=== PATIENT | female | born 1980 | race Caucasian/White ===

== ENCOUNTER 2020-01-10 13:25 | Inpatient (IN) | payer MEDICAID ==
[~2020-01-10] VITALS: Ht 162.6 cm; Wt 153.8 kg
[2020-01-18 20:30] VITALS: BP 149/88
[2020-01-18] MEDS ORDERED: ACETAMINOPHEN 325 MG TABLET PO PRN (21:15)
[2020-01-18] MEDS ORDERED: HYPROMELLOSE 0.5% 15 ML OPHTHALMIC SOLUTION OU PRN (21:30)
[2020-01-18] MEDS ORDERED: POLYETHYLENE GLYCOL 3350 17 GM PACKET PO PRN (21:30)
[2020-01-18] MEDS ORDERED: DEXTROSE 50%-WATER 25 GM/50 ML SYRINGE IVP PRN (21:45)
[2020-01-18] MEDS ORDERED: CITALOPRAM HYDROBROMIDE 20 MG TABLET PO PRN (21:45)
[2020-01-18] MEDS ORDERED: INSULIN LISPRO 100 UNITS/ML SQ PRN (21:45)
[2020-01-18] MEDS: GABAPENTIN 100 MG CAPSULE PO SCH (22:27)
[2020-01-18] MEDS: HEPARIN SODIUM,PORCINE 10,000 UNITS/ML VIAL SQ SCH (22:27)
[2020-01-18] MEDS: OXYGEN THERAPY IH SCH (22:28)
[2020-01-18] MEDS ORDERED: INFLUENZA VIRUS VACCINE QVS 2019-20 (3YR+)/PF 60 MCG/0.5 ML SYRINGE IM ONE (22:30)
[2020-01-18 22:50] LABS: GLUCOMETER DEV NAME(LOC) 2WR.2; GLUCOSE,POINT OF CARE 103 MG/DL (70-110)
[2020-01-19 04:48] VITALS: BP 145/79
[2020-01-19 06:45] LABS: GLUCOMETER DEV NAME(LOC) 2WR.1C; GLUCOSE,POINT OF CARE 102 MG/DL (70-110)
[2020-01-19 07:28] LABS: BASOPHILS % (AUTO) 0.6 % (0.0-2.0); EOSINOPHILS % (AUTO) 3.6 % (1.0-6.0); HEMATOCRIT 31.3 % (36-46); HEMOGLOBIN 10.1 g/dL (12.0-16.0); LYMPHOCYTES # (AUTO) 1.1 K/uL (1.0-4.8); MEAN CORPUSCULAR HEMOGLOBIN 28.2 pg (26.0-34.0); MEAN CORPUSCULAR HGB CONC 32.3 G/dL (31.0-37.0); MEAN CORPUSCULAR VOLUME 87 fL (80-100); MONOCYTES # (AUTO) 0.5 K/uL (0.1-1.0); MONOCYTES % (AUTO) 13.6 % (2.0-9.0); NEUTROPHILS # (AUTO) 1.8 K/uL (1.8-7.7); NEUTROPHILS % (AUTO) 51.2 % (40.0-70.0); PLATELET COUNT (AUTO) 202 K/uL (150-450); RED BLOOD CELL COUNT(AUTO) 3.59 MIL/uL (4.00-5.20); RED CELL DISTRIBUTION WIDTH 15.6 % (11.5-14.5)
[2020-01-19 07:48] LABS: ALANINE AMINOTRANSFERASE 28 U/L (12-78); ALBUMIN 2.9 g/dL (3.4-5.0); ALKALINE PHOSPHATASE 76 U/L (46-116); ANION GAP 1 mmol/L (8-16); ASPARTATE AMINOTRANSFERASE 43 U/L (15-37); BILIRUBIN,TOTAL 0.6 mg/dL (0.1-1.0); CALCIUM, TOTAL 9.5 mg/dL (8.8-10.5); CARBON DIOXIDE 38 mmol/L (22-29); CHLORIDE 99 mmol/L (98-107); CREATININE 0.76 mg/dL (0.60-1.30); GLOMERULAR FILTR. RATE CALC > 60 mL/min (>60); GLUCOSE,RANDOM 100 mg/dL (70-110); SODIUM SERUM 138 mmol/L (136-145); TOTAL PROTEIN, SERUM 7.3 g/dL (6.4-8.2); UREA NITROGEN, BLOOD 7 mg/dL (7-18)
[2020-01-19 08:00] VITALS: BP 139/77
[2020-01-19] MEDS ORDERED: ARIPiprazole 10 MG TABLET PO SCH (09:00)
[2020-01-19] MEDS: CIPROFLOXACIN HCL 0.3% 2.5 ML OPHTHALMIC SOLUTION OU SCH ×4 (09:09→20:24)
[2020-01-19] MEDS: FLUTICASONE PROPIONATE 50 MCG/SPRAY 16 GM NASAL SPRAY NASAL SCH (09:10)
[2020-01-19] MEDS: KETOCONAZOLE 2% 15 GM CREAM TP SCH (09:10)
[2020-01-19] MEDS: SENNA 187 MG TABLET PO SCH (09:11)
[2020-01-19] MEDS: ASCORBIC ACID 500 MG TABLET PO SCH (09:11)
[2020-01-19] MEDS: MULTIVITAMINS WITH MINERALS, THERAPEUTIC TABLET PO SCH (09:11)
[2020-01-19] MEDS: DOCUSATE SODIUM 250 MG CAPSULE PO SCH (09:11)
[2020-01-19] MEDS: MetFORMIN HCL 500 MG TABLET PO SCH ×2 (09:11→17:51)
[2020-01-19] MEDS: GABAPENTIN 100 MG CAPSULE PO SCH ×3 (09:11→20:24)
[2020-01-19] MEDS: HEPARIN SODIUM,PORCINE 10,000 UNITS/ML VIAL SQ SCH ×2 (09:12→20:24)
[2020-01-19] MEDS: OXYGEN THERAPY IH SCH ×2 (09:38→20:22)
[2020-01-19] MEDS: INSULIN GLARGINE,HUM.REC.ANLOG 100 UNITS/ML SQ SCH (09:43)
[2020-01-19 14:21] LABS: GLUCOMETER DEV NAME(LOC) 2WR.2; GLUCOSE,POINT OF CARE 90 MG/DL (70-110)
[2020-01-19 15:20] VITALS: BP 125/73
[2020-01-19 18:14] LABS: GLUCOMETER DEV NAME(LOC) 2WR.2; GLUCOSE,POINT OF CARE 86 MG/DL (70-110)
[2020-01-19] MEDS: ARIPiprazole 10 MG TABLET PO SCH (20:23)
[2020-01-19 20:57] LABS: GLUCOMETER DEV NAME(LOC) 2WR.2; GLUCOSE,POINT OF CARE 115 MG/DL (70-110)
[2020-01-20 01:21] VITALS: BP 141/89
[2020-01-20] MEDS: OxyCODONE HCL 5 MG IR TABLET PO PRN (01:21)
[2020-01-20 07:13] LABS: GLUCOMETER DEV NAME(LOC) 2WR.2; GLUCOSE,POINT OF CARE 104 MG/DL (70-110)
[2020-01-20 07:45] VITALS: BP 92/51
[2020-01-20] MEDS: FLUTICASONE PROPIONATE 50 MCG/SPRAY 16 GM NASAL SPRAY NASAL SCH (09:20)
[2020-01-20] MEDS: HEPARIN SODIUM,PORCINE 10,000 UNITS/ML VIAL SQ SCH ×2 (09:21→20:40)
[2020-01-20] MEDS: MetFORMIN HCL 500 MG TABLET PO SCH ×2 (09:21→17:00)
[2020-01-20] MEDS: KETOCONAZOLE 2% 15 GM CREAM TP SCH (09:21)
[2020-01-20] MEDS: DOCUSATE SODIUM 250 MG CAPSULE PO SCH (09:22)
[2020-01-20] MEDS: MULTIVITAMINS WITH MINERALS, THERAPEUTIC TABLET PO SCH (09:22)
[2020-01-20] MEDS: GABAPENTIN 100 MG CAPSULE PO SCH ×3 (09:22→20:40)
[2020-01-20] MEDS: ASCORBIC ACID 500 MG TABLET PO SCH (09:22)
[2020-01-20] MEDS: INSULIN GLARGINE,HUM.REC.ANLOG 100 UNITS/ML SQ SCH (09:28)
[2020-01-20] MEDS: CIPROFLOXACIN HCL 0.3% 2.5 ML OPHTHALMIC SOLUTION OU SCH ×4 (09:33→20:40)
[2020-01-20] MEDS: SENNA 187 MG TABLET PO SCH (09:33)
[2020-01-20] MEDS: OXYGEN THERAPY IH SCH ×2 (09:34→20:39)
[2020-01-20 14:09] LABS: GLUCOMETER DEV NAME(LOC) 2WR.2; GLUCOSE,POINT OF CARE 90 MG/DL (70-110)
[2020-01-20 16:00] VITALS: BP 111/67
[2020-01-20 17:58] LABS: GLUCOMETER DEV NAME(LOC) 2WR.2; GLUCOSE,POINT OF CARE 74 MG/DL (70-110)
[2020-01-20] MEDS: ARIPiprazole 10 MG TABLET PO SCH (20:39)
[2020-01-20 21:38] LABS: GLUCOMETER DEV NAME(LOC) 2WR.2; GLUCOSE,POINT OF CARE 87 MG/DL (70-110)
[2020-01-20 23:43] VITALS: BP 116/52
[2020-01-21 05:50] LABS: GLUCOMETER DEV NAME(LOC) 2WR.2; GLUCOSE,POINT OF CARE 74 MG/DL (70-110)
[2020-01-21 07:30] VITALS: BP 104/61
[2020-01-21] MEDS: OXYGEN THERAPY IH SCH ×2 (08:04→20:57)
[2020-01-21] MEDS: MULTIVITAMINS WITH MINERALS, THERAPEUTIC TABLET PO SCH (08:04)
[2020-01-21] MEDS: DOCUSATE SODIUM 250 MG CAPSULE PO SCH (08:05)
[2020-01-21] MEDS: MetFORMIN HCL 500 MG TABLET PO SCH ×2 (08:05→17:39)
[2020-01-21] MEDS: GABAPENTIN 100 MG CAPSULE PO SCH ×3 (08:05→20:56)
[2020-01-21] MEDS: CIPROFLOXACIN HCL 0.3% 2.5 ML OPHTHALMIC SOLUTION OU SCH ×4 (08:05→20:57)
[2020-01-21] MEDS: ASCORBIC ACID 500 MG TABLET PO SCH (08:06)
[2020-01-21] MEDS: KETOCONAZOLE 2% 15 GM CREAM TP SCH (08:06)
[2020-01-21] MEDS: FLUTICASONE PROPIONATE 50 MCG/SPRAY 16 GM NASAL SPRAY NASAL SCH (08:06)
[2020-01-21] MEDS: HEPARIN SODIUM,PORCINE 10,000 UNITS/ML VIAL SQ SCH ×2 (08:06→20:59)
[2020-01-21 16:27] VITALS: BP 130/66
[2020-01-21 19:02] LABS: GLUCOMETER DEV NAME(LOC) 2WR.2; GLUCOSE,POINT OF CARE 75 MG/DL (70-110)
[2020-01-21] MEDS: SENNA 187 MG TABLET PO SCH (20:56)
[2020-01-21] MEDS: ARIPiprazole 10 MG TABLET PO SCH (20:56)
[2020-01-21] MEDS ORDERED: INSULIN GLARGINE,HUM.REC.ANLOG 100 UNITS/ML SQ SCH (21:00)
[2020-01-21 22:35] LABS: GLUCOMETER DEV NAME(LOC) 2WR.2; GLUCOSE,POINT OF CARE 99 MG/DL (70-110)
[2020-01-22 03:33] VITALS: BP 139/84
[2020-01-22] MEDS: OxyCODONE HCL 5 MG IR TABLET PO PRN (03:33)
[2020-01-22 05:33] LABS: GLUCOMETER DEV NAME(LOC) 2WR.1C; GLUCOSE,POINT OF CARE 71 MG/DL (70-110)
[2020-01-22 05:51] LABS: GLUCOMETER DEV NAME(LOC) 2WR.2; GLUCOSE,POINT OF CARE 93 MG/DL (70-110)
[2020-01-22] MEDS ORDERED: INSULIN GLARGINE,HUM.REC.ANLOG 100 UNITS/ML SQ SCH ×3 (09:00→21:00)
[2020-01-22] MEDS: DOCUSATE SODIUM 250 MG CAPSULE PO SCH (09:26)
[2020-01-22] MEDS: GABAPENTIN 100 MG CAPSULE PO SCH ×3 (09:26→21:22)
[2020-01-22] MEDS: MetFORMIN HCL 500 MG TABLET PO SCH ×2 (09:26→17:08)
[2020-01-22] MEDS: FLUTICASONE PROPIONATE 50 MCG/SPRAY 16 GM NASAL SPRAY NASAL SCH (09:26)
[2020-01-22] MEDS: MULTIVITAMINS WITH MINERALS, THERAPEUTIC TABLET PO SCH (09:27)
[2020-01-22] MEDS: KETOCONAZOLE 2% 15 GM CREAM TP SCH (09:27)
[2020-01-22] MEDS: HEPARIN SODIUM,PORCINE 10,000 UNITS/ML VIAL SQ SCH ×2 (09:27→21:22)
[2020-01-22] MEDS: ASCORBIC ACID 500 MG TABLET PO SCH (09:27)
[2020-01-22] MEDS: SENNA 187 MG TABLET PO SCH (09:27)
[2020-01-22] MEDS: CIPROFLOXACIN HCL 0.3% 2.5 ML OPHTHALMIC SOLUTION OU SCH ×4 (09:28→21:21)
[2020-01-22] MEDS: OXYGEN THERAPY IH SCH ×2 (09:30→21:21)
[2020-01-22 10:09] VITALS: BP 96/52
[2020-01-22 12:19] LABS: GLUCOMETER DEV NAME(LOC) 2WR.2; GLUCOSE,POINT OF CARE 95 MG/DL (70-110)
[2020-01-22 15:30] VITALS: BP 101/60
[2020-01-22] MEDS: GuaiFENesin/D-METHORPHAN [SUGAR-FREE] 200-20MG/10 ML SYRUP UDCUP PO PRN (17:08)
[2020-01-22 17:58] LABS: GLUCOMETER DEV NAME(LOC) 2WR.2; GLUCOSE,POINT OF CARE 93 MG/DL (70-110)
[2020-01-22] MEDS: BENZONATATE 100 MG CAPSULE PO SCH ×2 (21:21→23:49)
[2020-01-22] MEDS: ARIPiprazole 10 MG TABLET PO SCH (21:22)
[2020-01-22 22:21] LABS: GLUCOMETER DEV NAME(LOC) 2WR.2; GLUCOSE,POINT OF CARE 91 MG/DL (70-110)
[2020-01-22 23:30] VITALS: BP 105/61
[2020-01-23 06:51] LABS: GLUCOMETER DEV NAME(LOC) 2WR.2; GLUCOSE,POINT OF CARE 87 MG/DL (70-110)
[2020-01-23 08:00] VITALS: BP 147/77
[2020-01-23] MEDS: FLUTICASONE PROPIONATE 50 MCG/SPRAY 16 GM NASAL SPRAY NASAL SCH (09:26)
[2020-01-23] MEDS: SENNA 187 MG TABLET PO SCH (09:27)
[2020-01-23] MEDS: KETOCONAZOLE 2% 15 GM CREAM TP SCH (09:27)
[2020-01-23] MEDS: CIPROFLOXACIN HCL 0.3% 2.5 ML OPHTHALMIC SOLUTION OU SCH ×4 (09:27→19:49)
[2020-01-23] MEDS: MetFORMIN HCL 500 MG TABLET PO SCH ×2 (09:27→17:00)
[2020-01-23] MEDS: BENZONATATE 100 MG CAPSULE PO SCH ×3 (09:27→23:21)
[2020-01-23] MEDS: MULTIVITAMINS WITH MINERALS, THERAPEUTIC TABLET PO SCH (09:28)
[2020-01-23] MEDS: ASCORBIC ACID 500 MG TABLET PO SCH (09:28)
[2020-01-23] MEDS: GABAPENTIN 100 MG CAPSULE PO SCH ×4 (09:28→19:49)
[2020-01-23] MEDS: DOCUSATE SODIUM 250 MG CAPSULE PO SCH (09:28)
[2020-01-23] MEDS: HEPARIN SODIUM,PORCINE 10,000 UNITS/ML VIAL SQ SCH ×2 (09:29→19:49)
[2020-01-23] MEDS: OXYGEN THERAPY IH SCH ×2 (09:29→19:49)
[2020-01-23] MEDS: GuaiFENesin/D-METHORPHAN [SUGAR-FREE] 200-20MG/10 ML SYRUP UDCUP PO PRN ×2 (12:35→19:52)
[2020-01-23 13:53] LABS: GLUCOMETER DEV NAME(LOC) 2WR.1C; GLUCOSE,POINT OF CARE 87 MG/DL (70-110)
[2020-01-23 16:35] VITALS: BP 144/76
[2020-01-23] MEDS: ARIPiprazole 10 MG TABLET PO SCH (19:49)
[2020-01-23 22:03] LABS: GLUCOMETER DEV NAME(LOC) 2WR.2; GLUCOSE,POINT OF CARE 99 MG/DL (70-110)
[2020-01-23 23:21] VITALS: BP 134/80
[2020-01-24] MEDS ORDERED: ARIP5TAB8 PO (02:27)
[2020-01-24 02:54] LABS: GLUCOMETER DEV NAME(LOC) 2WR.1C; GLUCOSE,POINT OF CARE 93 MG/DL (70-110)
[2020-01-24 06:26] LABS: GLUCOMETER DEV NAME(LOC) 2WR.1C; GLUCOSE,POINT OF CARE 93 MG/DL (70-110)
[2020-01-24 07:50] VITALS: BP 139/83
[2020-01-24] MEDS: MetFORMIN HCL 500 MG TABLET PO SCH (08:15)
[2020-01-24] MEDS: GuaiFENesin/D-METHORPHAN [SUGAR-FREE] 200-20MG/10 ML SYRUP UDCUP PO PRN ×2 (08:16→10:49)
[2020-01-24] MEDS: HEPARIN SODIUM,PORCINE 10,000 UNITS/ML VIAL SQ SCH ×2 (08:16→22:16)
[2020-01-24] MEDS: BENZONATATE 100 MG CAPSULE PO SCH ×3 (08:16→22:17)
[2020-01-24] MEDS: GABAPENTIN 100 MG CAPSULE PO SCH (08:16)
[2020-01-24] MEDS: ASCORBIC ACID 500 MG TABLET PO SCH (08:16)
[2020-01-24] MEDS: MULTIVITAMINS WITH MINERALS, THERAPEUTIC TABLET PO SCH (08:16)
[2020-01-24] MEDS: SENNA 187 MG TABLET PO SCH (08:16)
[2020-01-24] MEDS: DOCUSATE SODIUM 250 MG CAPSULE PO SCH (08:16)
[2020-01-24] MEDS: CIPROFLOXACIN HCL 0.3% 2.5 ML OPHTHALMIC SOLUTION OU SCH ×4 (08:16→22:16)
[2020-01-24] MEDS: FLUTICASONE PROPIONATE 50 MCG/SPRAY 16 GM NASAL SPRAY NASAL SCH (08:16)
[2020-01-24] MEDS: OXYGEN THERAPY IH SCH ×2 (08:17→20:00)
[2020-01-24] MEDS: KETOCONAZOLE 2% 15 GM CREAM TP SCH ×2 (09:00→22:15)
[2020-01-24 16:45] VITALS: BP 141/78
[2020-01-24] MEDS: MetFORMIN HCL 850 MG TABLET PO SCH (18:05)
[2020-01-24 18:23] LABS: GLUCOMETER DEV NAME(LOC) 2WR.2; GLUCOSE,POINT OF CARE 97 MG/DL (70-110)
[2020-01-24] MEDS: ARIPiprazole 10 MG TABLET PO SCH (22:16)
[2020-01-24] MEDS ORDERED: WATER FOR IRRIGATION,STERILE 1000 ML SOLUTION BOTTLE ONE (22:29)
[2020-01-25 03:30] VITALS: BP 116/76
[2020-01-25 07:45] LABS: GLUCOMETER DEV NAME(LOC) 2WR.1C; GLUCOSE,POINT OF CARE 96 MG/DL (70-110)
[2020-01-25 07:55] VITALS: BP 122/84
[2020-01-25] MEDS: OXYGEN THERAPY IH SCH ×2 (08:00→19:41)
[2020-01-25] MEDS: MetFORMIN HCL 850 MG TABLET PO SCH ×2 (08:08→17:37)
[2020-01-25] MEDS: MULTIVITAMINS WITH MINERALS, THERAPEUTIC TABLET PO SCH (08:09)
[2020-01-25] MEDS: ASCORBIC ACID 500 MG TABLET PO SCH (08:09)
[2020-01-25] MEDS: SENNA 187 MG TABLET PO SCH (08:09)
[2020-01-25] MEDS: FLUTICASONE PROPIONATE 50 MCG/SPRAY 16 GM NASAL SPRAY NASAL SCH (08:09)
[2020-01-25] MEDS: BENZONATATE 100 MG CAPSULE PO SCH ×3 (08:09→23:35)
[2020-01-25] MEDS: DOCUSATE SODIUM 250 MG CAPSULE PO SCH (08:09)
[2020-01-25] MEDS: CIPROFLOXACIN HCL 0.3% 2.5 ML OPHTHALMIC SOLUTION OU SCH ×4 (08:10→19:23)
[2020-01-25] MEDS: HEPARIN SODIUM,PORCINE 10,000 UNITS/ML VIAL SQ SCH ×2 (08:10→19:24)
[2020-01-25 16:00] VITALS: BP 118/61
[2020-01-25 18:46] LABS: GLUCOMETER DEV NAME(LOC) 2WR.2; GLUCOSE,POINT OF CARE 100 MG/DL (70-110)
[2020-01-25] MEDS: ARIPiprazole 10 MG TABLET PO SCH (19:23)
[2020-01-25] MEDS: KETOCONAZOLE 2% 15 GM CREAM TP SCH (19:23)
[2020-01-25] MEDS: HYDROCODONE/CHLORPHEN POLIS 10-8 MG/5 ML ORAL.SYG PO SCH (19:24)
[2020-01-25 19:44] VITALS: BP 140/85
[2020-01-26] VITALS: BP 109/66
[2020-01-26] MEDS ORDERED: CALC1TAB PO (02:48)
[2020-01-26] MEDS ORDERED: METF-960 PO (02:48)
[2020-01-26] MEDS ORDERED: LOSA25TA71 PO (02:48)
[2020-01-26] MEDS ORDERED: PRAZ2 PO (02:48)
[2020-01-26 06:00] LABS: GLUCOMETER DEV NAME(LOC) 2WR.2; GLUCOSE,POINT OF CARE 100 MG/DL (70-110)
[2020-01-26] MEDS: PANTOPRAZOLE SODIUM 40 MG DR TABLET PO SCH (06:22)
[2020-01-26 07:45] VITALS: BP 100/51
[2020-01-26] MEDS: MULTIVITAMINS WITH MINERALS, THERAPEUTIC TABLET PO SCH (08:35)
[2020-01-26] MEDS: SENNA 187 MG TABLET PO SCH (08:35)
[2020-01-26] MEDS: HYDROCODONE/CHLORPHEN POLIS 10-8 MG/5 ML ORAL.SYG PO SCH ×2 (08:35→21:46)
[2020-01-26] MEDS: DOCUSATE SODIUM 250 MG CAPSULE PO SCH (08:35)
[2020-01-26] MEDS: BENZONATATE 100 MG CAPSULE PO SCH ×2 (08:35→17:20)
[2020-01-26] MEDS: ASCORBIC ACID 500 MG TABLET PO SCH (08:35)
[2020-01-26] MEDS: FLUTICASONE PROPIONATE 50 MCG/SPRAY 16 GM NASAL SPRAY NASAL SCH (08:38)
[2020-01-26] MEDS: MetFORMIN HCL 850 MG TABLET PO SCH ×2 (08:39→17:54)
[2020-01-26] MEDS: HEPARIN SODIUM,PORCINE 10,000 UNITS/ML VIAL SQ SCH ×2 (08:39→21:46)
[2020-01-26] MEDS: CIPROFLOXACIN HCL 0.3% 2.5 ML OPHTHALMIC SOLUTION OU SCH ×4 (08:40→21:45)
[2020-01-26] MEDS: OXYGEN THERAPY IH SCH ×2 (08:41→21:45)
[2020-01-26 10:48] LABS: BASOPHILS % (AUTO) 1.1 % (0.0-2.0); EOSINOPHILS % (AUTO) 2.8 % (1.0-6.0); HEMATOCRIT 33.2 % (36-46); HEMOGLOBIN 10.6 g/dL (12.0-16.0); LYMPHOCYTES # (AUTO) 1.4 K/uL (1.0-4.8); LYMPHOCYTES % (AUTO) 37.5 % (22.0-44.0); MEAN CORPUSCULAR HEMOGLOBIN 28.4 pg (26.0-34.0); MEAN CORPUSCULAR VOLUME 89 fL (80-100); MONOCYTES # (AUTO) 0.4 K/uL (0.1-1.0); MONOCYTES % (AUTO) 11.7 % (2.0-9.0); NEUTROPHILS # (AUTO) 1.7 K/uL (1.8-7.7); NEUTROPHILS % (AUTO) 46.9 % (40.0-70.0); PLATELET COUNT (AUTO) 281 K/uL (150-450); RED BLOOD CELL COUNT(AUTO) 3.75 MIL/uL (4.00-5.20); RED CELL DISTRIBUTION WIDTH 15.8 % (11.5-14.5)
[2020-01-26 11:00] LABS: ANION GAP 5 mmol/L (8-16); CALCIUM, TOTAL 9.8 mg/dL (8.8-10.5); CARBON DIOXIDE 36 mmol/L (22-29); CHLORIDE 104 mmol/L (98-107); CREATININE 0.93 mg/dL (0.60-1.30); GLOMERULAR FILTR. RATE CALC > 60 mL/min (>60); GLUCOSE,RANDOM 101 mg/dL (70-110); POTASSIUM 4.3 mmol/L (3.5-5.1); SODIUM SERUM 145 mmol/L (136-145); UREA NITROGEN, BLOOD 9 mg/dL (7-18)
[2020-01-26 15:30] VITALS: BP 127/73
[2020-01-26 18:10] LABS: GLUCOMETER DEV NAME(LOC) 2WR.2; GLUCOSE,POINT OF CARE 83 MG/DL (70-110)
[2020-01-26] MEDS: ARIPiprazole 10 MG TABLET PO SCH (21:46)
[2020-01-26] MEDS: KETOCONAZOLE 2% 15 GM CREAM TP SCH (21:46)
[2020-01-27] VITALS: BP 131/59
[2020-01-27] MEDS: OxyCODONE HCL 5 MG IR TABLET PO PRN
[2020-01-27] MEDS: BENZONATATE 100 MG CAPSULE PO SCH ×4 (00:01→23:05)
[2020-01-27] MEDS: PANTOPRAZOLE SODIUM 40 MG DR TABLET PO SCH (05:34)
[2020-01-27 05:57] LABS: GLUCOMETER DEV NAME(LOC) 2WR.1C; GLUCOSE,POINT OF CARE 95 MG/DL (70-110)
[2020-01-27 07:30] VITALS: BP 97/48
[2020-01-27] MEDS: MULTIVITAMINS WITH MINERALS, THERAPEUTIC TABLET PO SCH (09:32)
[2020-01-27] MEDS: DOCUSATE SODIUM 250 MG CAPSULE PO SCH (09:32)
[2020-01-27] MEDS: ASCORBIC ACID 500 MG TABLET PO SCH (09:33)
[2020-01-27] MEDS: CIPROFLOXACIN HCL 0.3% 2.5 ML OPHTHALMIC SOLUTION OU SCH ×4 (09:33→20:13)
[2020-01-27] MEDS: FLUTICASONE PROPIONATE 50 MCG/SPRAY 16 GM NASAL SPRAY NASAL SCH (09:34)
[2020-01-27] MEDS: SENNA 187 MG TABLET PO SCH (09:35)
[2020-01-27] MEDS: MetFORMIN HCL 850 MG TABLET PO SCH ×2 (09:35→17:16)
[2020-01-27] MEDS: HEPARIN SODIUM,PORCINE 10,000 UNITS/ML VIAL SQ SCH ×2 (09:37→20:13)
[2020-01-27] MEDS: HYDROCODONE/CHLORPHEN POLIS 10-8 MG/5 ML ORAL.SYG PO SCH ×2 (09:37→20:13)
[2020-01-27] MEDS: OXYGEN THERAPY IH SCH ×2 (09:38→20:14)
[2020-01-27 11:11] VITALS: BP 131/80
[2020-01-27 16:00] VITALS: BP 109/69
[2020-01-27 18:54] LABS: GLUCOMETER DEV NAME(LOC) 2WR.2; GLUCOSE,POINT OF CARE 104 MG/DL (70-110)
[2020-01-27] MEDS: ARIPiprazole 10 MG TABLET PO SCH (20:13)
[2020-01-27] MEDS: KETOCONAZOLE 2% 15 GM CREAM TP SCH (20:13)
[2020-01-28] VITALS: BP 108/66
[2020-01-28 06:05] LABS: GLUCOMETER DEV NAME(LOC) 2WR.1C; GLUCOSE,POINT OF CARE 83 MG/DL (70-110)
[2020-01-28] MEDS: PANTOPRAZOLE SODIUM 40 MG DR TABLET PO SCH (06:17)
[2020-01-28 08:00] VITALS: BP 119/61
[2020-01-28] MEDS: CIPROFLOXACIN HCL 0.3% 2.5 ML OPHTHALMIC SOLUTION OU SCH ×4 (08:52→20:54)
[2020-01-28] MEDS: BENZONATATE 100 MG CAPSULE PO SCH ×2 (08:52→16:37)
[2020-01-28] MEDS: ASCORBIC ACID 500 MG TABLET PO SCH (08:52)
[2020-01-28] MEDS: HEPARIN SODIUM,PORCINE 10,000 UNITS/ML VIAL SQ SCH ×2 (08:53→20:53)
[2020-01-28] MEDS: DOCUSATE SODIUM 250 MG CAPSULE PO SCH (08:53)
[2020-01-28] MEDS: MetFORMIN HCL 850 MG TABLET PO SCH ×2 (08:53→17:41)
[2020-01-28] MEDS: MULTIVITAMINS WITH MINERALS, THERAPEUTIC TABLET PO SCH (08:53)
[2020-01-28] MEDS: FLUTICASONE PROPIONATE 50 MCG/SPRAY 16 GM NASAL SPRAY NASAL SCH (08:54)
[2020-01-28] MEDS: OXYGEN THERAPY IH SCH ×2 (08:55→21:06)
[2020-01-28] MEDS: SENNA 187 MG TABLET PO SCH (08:55)
[2020-01-28] MEDS: HYDROCODONE/CHLORPHEN POLIS 10-8 MG/5 ML ORAL.SYG PO SCH ×2 (09:35→20:53)
[2020-01-28 16:54] VITALS: BP 98/54
[2020-01-28] MEDS: KETOCONAZOLE 2% 15 GM CREAM TP SCH (20:53)
[2020-01-28] MEDS: ARIPiprazole 10 MG TABLET PO SCH (20:53)
[2020-01-28] MEDS: OxyCODONE HCL 5 MG IR TABLET PO PRN (21:00)
[2020-01-28 23:28] LABS: GLUCOMETER DEV NAME(LOC) 2WR.1C; GLUCOSE,POINT OF CARE 96 MG/DL (70-110)
[2020-01-29] MEDS: BENZONATATE 100 MG CAPSULE PO SCH ×4 (00:30→22:56)
[2020-01-29 00:51] VITALS: BP 95/59
[2020-01-29] MEDS: PANTOPRAZOLE SODIUM 40 MG DR TABLET PO SCH (05:57)
[2020-01-29 06:31] LABS: GLUCOMETER DEV NAME(LOC) 2WR.2; GLUCOSE,POINT OF CARE 91 MG/DL (70-110)
[2020-01-29] MEDS: MetFORMIN HCL 850 MG TABLET PO SCH ×2 (07:53→16:31)
[2020-01-29] MEDS: HYDROCODONE/CHLORPHEN POLIS 10-8 MG/5 ML ORAL.SYG PO SCH ×2 (07:53→20:19)
[2020-01-29] MEDS: MULTIVITAMINS WITH MINERALS, THERAPEUTIC TABLET PO SCH (07:53)
[2020-01-29] MEDS: ASCORBIC ACID 500 MG TABLET PO SCH (07:53)
[2020-01-29] MEDS: FLUTICASONE PROPIONATE 50 MCG/SPRAY 16 GM NASAL SPRAY NASAL SCH (07:53)
[2020-01-29] MEDS: SENNA 187 MG TABLET PO SCH (07:53)
[2020-01-29] MEDS: HEPARIN SODIUM,PORCINE 10,000 UNITS/ML VIAL SQ SCH ×2 (07:54→20:19)
[2020-01-29] MEDS ORDERED: POLYETHYLENE GLYCOL 3350 17 GM PACKET PO SCH (09:00)
[2020-01-29] MEDS: DOCUSATE SODIUM 250 MG CAPSULE PO SCH (09:21)
[2020-01-29] MEDS: CIPROFLOXACIN HCL 0.3% 2.5 ML OPHTHALMIC SOLUTION OU SCH ×4 (09:21→20:19)
[2020-01-29 09:27] VITALS: BP 109/66
[2020-01-29 15:48] VITALS: BP 121/71
[2020-01-29 17:42] LABS: GLUCOMETER DEV NAME(LOC) 2WR.2; GLUCOSE,POINT OF CARE 89 MG/DL (70-110)
[2020-01-29] MEDS: ARIPiprazole 10 MG TABLET PO SCH (20:18)
[2020-01-29] MEDS: KETOCONAZOLE 2% 15 GM CREAM TP SCH (20:20)
[2020-01-30] VITALS: BP 98/57
[2020-01-30] MEDS: PANTOPRAZOLE SODIUM 40 MG DR TABLET PO SCH (06:18)
[2020-01-30 06:28] LABS: GLUCOMETER DEV NAME(LOC) 2WR.2; GLUCOSE,POINT OF CARE 93 MG/DL (70-110)
[2020-01-30] MEDS: HYDROCODONE/CHLORPHEN POLIS 10-8 MG/5 ML ORAL.SYG PO SCH ×2 (08:05→20:21)
[2020-01-30] MEDS: FLUTICASONE PROPIONATE 50 MCG/SPRAY 16 GM NASAL SPRAY NASAL SCH (08:05)
[2020-01-30] MEDS: SENNA 187 MG TABLET PO SCH (08:05)
[2020-01-30] MEDS: MULTIVITAMINS WITH MINERALS, THERAPEUTIC TABLET PO SCH (08:06)
[2020-01-30] MEDS: MetFORMIN HCL 850 MG TABLET PO SCH ×2 (08:06→16:52)
[2020-01-30] MEDS: BENZONATATE 100 MG CAPSULE PO SCH ×3 (08:06→23:06)
[2020-01-30] MEDS: DOCUSATE SODIUM 250 MG CAPSULE PO SCH (08:06)
[2020-01-30] MEDS: ASCORBIC ACID 500 MG TABLET PO SCH (08:06)
[2020-01-30] MEDS: CIPROFLOXACIN HCL 0.3% 2.5 ML OPHTHALMIC SOLUTION OU SCH ×4 (08:11→20:22)
[2020-01-30] MEDS: HEPARIN SODIUM,PORCINE 10,000 UNITS/ML VIAL SQ SCH ×2 (08:12→20:24)
[2020-01-30 09:16] VITALS: BP 118/74
[2020-01-30 15:59] VITALS: BP 132/77
[2020-01-30] MEDS: KETOCONAZOLE 2% 15 GM CREAM TP SCH (20:23)
[2020-01-30] MEDS: GABAPENTIN 300 MG CAPSULE PO SCH (20:24)
[2020-01-30] MEDS: ARIPiprazole 10 MG TABLET PO SCH (20:24)
[2020-01-30 23:54] VITALS: BP 136/70
[2020-01-31] MEDS: PANTOPRAZOLE SODIUM 40 MG DR TABLET PO SCH (05:51)
[2020-01-31 06:02] LABS: GLUCOMETER DEV NAME(LOC) 2WR.1C; GLUCOSE,POINT OF CARE 97 MG/DL (70-110)
[2020-01-31 09:00] VITALS: BP 113/72
[2020-01-31] MEDS: BENZONATATE 100 MG CAPSULE PO SCH ×3 (09:23→23:32)
[2020-01-31] MEDS: CIPROFLOXACIN HCL 0.3% 2.5 ML OPHTHALMIC SOLUTION OU SCH ×4 (09:24→20:55)
[2020-01-31] MEDS: SENNA 187 MG TABLET PO SCH (09:24)
[2020-01-31] MEDS: HYDROCODONE/CHLORPHEN POLIS 10-8 MG/5 ML ORAL.SYG PO SCH ×2 (09:24→20:56)
[2020-01-31] MEDS: FLUTICASONE PROPIONATE 50 MCG/SPRAY 16 GM NASAL SPRAY NASAL SCH (09:24)
[2020-01-31] MEDS: HEPARIN SODIUM,PORCINE 10,000 UNITS/ML VIAL SQ SCH ×2 (09:25→20:56)
[2020-01-31] MEDS: DOCUSATE SODIUM 250 MG CAPSULE PO SCH (09:25)
[2020-01-31] MEDS: MULTIVITAMINS WITH MINERALS, THERAPEUTIC TABLET PO SCH (09:25)
[2020-01-31] MEDS: ASCORBIC ACID 500 MG TABLET PO SCH (09:25)
[2020-01-31] MEDS: MetFORMIN HCL 850 MG TABLET PO SCH ×2 (09:26→17:46)
[2020-01-31 16:12] VITALS: BP 142/78
[2020-01-31] MEDS: GABAPENTIN 300 MG CAPSULE PO SCH (20:55)
[2020-01-31] MEDS: ARIPiprazole 10 MG TABLET PO SCH (20:55)
[2020-01-31] MEDS: KETOCONAZOLE 2% 15 GM CREAM TP SCH (20:55)
[2020-01-31 23:58] VITALS: BP 140/74
[2020-02-01] MEDS ORDERED: BENZ-51 PO (03:17)
[2020-02-01] MEDS ORDERED: PANT40TA25 PO (03:17)
[2020-02-01] MEDS ORDERED: GABA-531 PO (03:17)
[2020-02-01] MEDS ORDERED: MULT-1133 PO (03:17)
[2020-02-01] MEDS ORDERED: KETOCONAZOLE 2% TP (03:17)
[2020-02-01] MEDS ORDERED: DOCU250C14 PO (03:17)
[2020-02-01] MEDS ORDERED: METF-960 PO (03:17)
[2020-02-01] MEDS ORDERED: ASCO500 PO (03:17)
[2020-02-01] MEDS: PANTOPRAZOLE SODIUM 40 MG DR TABLET PO SCH (06:22)
[2020-02-01 07:02] LABS: GLUCOMETER DEV NAME(LOC) 2WR.1C; GLUCOSE,POINT OF CARE 94 MG/DL (70-110)
[2020-02-01 07:19] VITALS: BP 116/78
[2020-02-01] MEDS: MetFORMIN HCL 850 MG TABLET PO SCH ×2 (08:10→18:00)
[2020-02-01] MEDS: ASCORBIC ACID 500 MG TABLET PO SCH (08:29)
[2020-02-01] MEDS: HEPARIN SODIUM,PORCINE 10,000 UNITS/ML VIAL SQ SCH (08:30)
[2020-02-01] MEDS: BENZONATATE 100 MG CAPSULE PO SCH ×2 (08:30→15:36)
[2020-02-01] MEDS: FLUTICASONE PROPIONATE 50 MCG/SPRAY 16 GM NASAL SPRAY NASAL SCH (08:30)
[2020-02-01] MEDS: CIPROFLOXACIN HCL 0.3% 2.5 ML OPHTHALMIC SOLUTION OU SCH ×3 (08:30→15:36)
[2020-02-01] MEDS: HYDROCODONE/CHLORPHEN POLIS 10-8 MG/5 ML ORAL.SYG PO SCH (08:31)
[2020-02-01] MEDS: SENNA 187 MG TABLET PO SCH (08:31)
[2020-02-01] MEDS: MULTIVITAMINS WITH MINERALS, THERAPEUTIC TABLET PO SCH (08:31)
[2020-02-01] MEDS: DOCUSATE SODIUM 250 MG CAPSULE PO SCH (08:31)
[2020-02-01] MEDS ORDERED: TUSSI5L PO (11:02)
[2020-02-01] MEDS ORDERED: FLUT16H NASAL (11:02)
[2020-02-01 15:30] VITALS: BP 124/76
[2020-02-01 16:43] VITALS: BP 124/76
== END 2020-02-01 19:35 | disposition home or self-care (01) | DRG 351 ==
LOC: UNDOADMIN 13:26 → 2WR 13:26
PROVIDERS: ADMIT Physical Medicine & Rehabilitation; ATTEND Physical Medicine & Rehabilitation
DX: D36.10 Benign neoplasm of peripheral nerves and autonomic nervous system, unspecified (principal); E46 Unspecified protein-calorie malnutrition; E66.01 Morbid (severe) obesity due to excess calories; Z68.43 Body mass index [BMI] 50.0-59.9, adult; R13.10 Dysphagia, unspecified; D64.9 Anemia, unspecified; D72.819 Decreased white blood cell count, unspecified; E11.9 Type 2 diabetes mellitus without complications; G43.909 Migraine, unspecified, not intractable, without status migrainosus; G47.33 Obstructive sleep apnea (adult) (pediatric); H91.91 Unspecified hearing loss, right ear; I10 Essential (primary) hypertension; J30.9 Allergic rhinitis, unspecified; K21.9 Gastro-esophageal reflux disease without esophagitis; Z80.49 Family history of malignant neoplasm of other genital organs; Z82.49 Family history of ischemic heart disease and other diseases of the circulatory system; Z83.3 Family history of diabetes mellitus; Z90.710 Acquired absence of both cervix and uterus
CPT/HCPCS: 74019; 74230; 87081; 92507; 92526; 92610; 92611; 93970; 94660; 94760; 97110; 97116; 97163; 97167; 97530; 97535; 99366; J1644; J1815

== ENCOUNTER 2021-05-03 15:55 | Inpatient (IN) | payer MEDICAID ==
[~2021-05-03] VITALS: Ht 165.1 cm; Wt 170.0 kg
[~2021-05-03 15:55] MED LIST: ARIP5TAB37 PO; ASCO500 PO; BENZ-70 PO; DOCU250C14 PO; FLUT16H NASAL; GABA-1181 PO; KETOCONAZOLE 2% TP; METF-960 PO; MULT-1133 PO; PANT-31 PO; TUSSI5L PO
[2021-05-03 16:38] LABS: BASOPHILS % (AUTO) 0.7 % (0.0-2.0); HEMATOCRIT 38.3 % (36-46); HEMOGLOBIN 12.3 g/dL (12.0-16.0); LYMPHOCYTES # (AUTO) 1.8 K/uL (1.0-4.8); LYMPHOCYTES % (AUTO) 30.1 % (22.0-44.0); MEAN CORPUSCULAR HEMOGLOBIN 26.7 pg (26.0-34.0); MEAN CORPUSCULAR HGB CONC 32.2 G/dL (31.0-37.0); MEAN CORPUSCULAR VOLUME 83 fL (80-100); MONOCYTES # (AUTO) 0.6 K/uL (0.1-1.0); MONOCYTES % (AUTO) 9.6 % (2.0-9.0); NEUTROPHILS # (AUTO) 3.4 K/uL (1.8-7.7); NEUTROPHILS % (AUTO) 56.6 % (40.0-70.0); PLATELET COUNT (AUTO) 182 K/uL (150-450); RED BLOOD CELL COUNT(AUTO) 4.63 MIL/uL (4.00-5.20); RED CELL DISTRIBUTION WIDTH 14.7 % (11.5-14.5)
[2021-05-03 16:51] LABS: COVID AG,FIA SOURCE NASOPHARYNGEAL
[2021-05-03 16:55] LABS: ANION GAP 5 mmol/L (8-16); CALCIUM, TOTAL 9.3 mg/dL (8.8-10.5); CARBON DIOXIDE 31 mmol/L (22-29); CHLORIDE 102 mmol/L (98-107); CREATININE 0.62 mg/dL (0.60-1.30); GLOMERULAR FILTR. RATE CALC > 60 mL/min (>60); GLUCOSE,RANDOM 118 mg/dL (70-110); POTASSIUM 3.9 mmol/L (3.5-5.1); SODIUM SERUM 138 mmol/L (136-145); UREA NITROGEN, BLOOD 12 mg/dL (7-18)
[2021-05-03 17:01] LABS: ALANINE AMINOTRANSFERASE 50 U/L (12-78); ALBUMIN 3.5 g/dL (3.4-5.0); ALKALINE PHOSPHATASE 139 U/L (46-116); ASPARTATE AMINOTRANSFERASE 77 U/L (15-37); BILIRUBIN,TOTAL 0.7 mg/dL (0.1-1.0)
[2021-05-03] MEDS ORDERED: HALOPERIDOL 5 MG TABLET PO PRN (19:00)
[2021-05-03] MEDS ORDERED: LORazepam 2 MG TABLET PO PRN (19:00)
[2021-05-03] MEDS ORDERED: ZOLPIDEM TARTRATE 10 MG TABLET PO PRN (19:00)
[2021-05-03 19:47] LABS: AMPHET/METH SCREEN,URINE NEGATIVE (NEGATIVE); BARBITURATE SCREEN, URINE NEGATIVE (NEGATIVE); BENZODIAZEPINES SCREEN,URINE NEGATIVE (NEGATIVE); CANNABINOID SCREEN,URINE NEGATIVE (NEGATIVE); COCAINE SCREEN,URINE NEGATIVE (NEGATIVE); METHADONE SCREEN, URINE NEGATIVE (NEGATIVE); OPIATE SCREEN,URINE NEGATIVE (NEGATIVE)
[2021-05-03 19:48] LABS: PHENCYCLIDINE SCREEN,URINE NEGATIVE (NEGATIVE)
[2021-05-03 20:49] VITALS: BP 157/97
[2021-05-03] MEDS ORDERED: DEXTROSE 50%-WATER 25 GM/50 ML SYRINGE IVP PRN (23:15)
[2021-05-04 01:18] VITALS: BP 124/79
[2021-05-04 06:03] LABS: GLUCOMETER DEV NAME(LOC) 3E.I 2; GLUCOSE,POINT OF CARE 138 MG/DL (70-110)
[2021-05-04] MEDS: INSULIN LISPRO 100 UNITS/ML SQ PRN ×2 (06:43→20:56)
[2021-05-04] MEDS: MetFORMIN HCL 500 MG TABLET PO SCH ×2 (06:48→17:48)
[2021-05-04 06:54] LABS: CHOL/HDL RATIO 3.2 (3.9-5.7)
[2021-05-04] MEDS ORDERED: NICOTINE 14 MG/24 HOUR PATCH TD PRN (08:00)
[2021-05-04] MEDS ORDERED: CloNIDine HCL 0.1 MG TABLET PO PRN (08:00)
[2021-05-04] MEDS ORDERED: ONDANSETRON HCL 4 MG TABLET PO PRN (08:00)
[2021-05-04] MEDS ORDERED: GuaiFENesin/D-METHORPHAN [SUGAR-FREE] 200-20MG/10 ML SYRUP UDCUP PO PRN (08:00)
[2021-05-04] MEDS ORDERED: MAGNESIUM HYDROXIDE SUSPENSION 30 ML UDCUP PO PRN (08:00)
[2021-05-04] MEDS ORDERED: DOCUSATE SODIUM 100 MG CAPSULE PO PRN (08:00)
[2021-05-04] MEDS ORDERED: PETROLATUM,WHITE 28 GM JELLY TP PRN (08:00)
[2021-05-04] MEDS ORDERED: ACETAMINOPHEN 325 MG TABLET PO PRN (08:00)
[2021-05-04] MEDS ORDERED: ALBUTEROL SULFATE HFA 90 MCG/PUFF 8 GM INHALER IH PRN (08:00)
[2021-05-04] MEDS ORDERED: MAG HYDROX/AL HYDROX/SIMETH ES 30 ML SUSPENSION UDCUP PO PRN (08:00)
[2021-05-04] MEDS ORDERED: IBUPROFEN 400 MG TABLET PO PRN (08:00)
[2021-05-04] MEDS: LOSARTAN POTASSIUM 25 MG TABLET PO SCH (08:45)
[2021-05-04] MEDS: FLUTICASONE PROPIONATE 50 MCG/SPRAY 16 GM NASAL SPRAY NASAL SCH (08:45)
[2021-05-04] MEDS: PANTOPRAZOLE SODIUM 40 MG DR TABLET PO SCH (08:46)
[2021-05-04] MEDS: ASCORBIC ACID 500 MG TABLET PO SCH (08:46)
[2021-05-04 08:47] VITALS: BP 142/98
[2021-05-04 11:19] LABS: GLUCOMETER DEV NAME(LOC) 3E.I 2; GLUCOSE,POINT OF CARE 134 MG/DL (70-110)
[2021-05-04] MEDS: ARIPiprazole 10 MG TABLET PO SCH (12:51)
[2021-05-04] MEDS: LOPERAMIDE HCL 2 MG CAPSULE PO PRN (15:03)
[2021-05-04 16:08] VITALS: BP 141/96
[2021-05-04 17:01] LABS: GLUCOMETER DEV NAME(LOC) 3E.I 2; GLUCOSE,POINT OF CARE 130 MG/DL (70-110)
[2021-05-04 20:20] LABS: GLUCOMETER DEV NAME(LOC) 3E.I 2; GLUCOSE,POINT OF CARE 151 MG/DL (70-110)
[2021-05-04] MEDS: GABAPENTIN 300 MG CAPSULE PO SCH (20:50)
[2021-05-05 05:21] VITALS: BP 140/84
[2021-05-05 05:27] LABS: GLUCOMETER DEV NAME(LOC) 3E.I 2; GLUCOSE,POINT OF CARE 143 MG/DL (70-110)
[2021-05-05] MEDS: MetFORMIN HCL 500 MG TABLET PO SCH ×2 (06:52→17:35)
[2021-05-05 08:00] VITALS: BP 147/86
[2021-05-05] MEDS: ASCORBIC ACID 500 MG TABLET PO SCH (08:17)
[2021-05-05] MEDS: ARIPiprazole 10 MG TABLET PO SCH (08:17)
[2021-05-05] MEDS: PANTOPRAZOLE SODIUM 40 MG DR TABLET PO SCH (08:18)
[2021-05-05] MEDS: LOSARTAN POTASSIUM 25 MG TABLET PO SCH (08:18)
[2021-05-05] MEDS: FLUTICASONE PROPIONATE 50 MCG/SPRAY 16 GM NASAL SPRAY NASAL SCH (08:18)
[2021-05-05] MEDS: GABAPENTIN 300 MG CAPSULE PO SCH ×2 (08:18→21:29)
[2021-05-05 11:10] LABS: GLUCOMETER DEV NAME(LOC) 3E.I 2; GLUCOSE,POINT OF CARE 109 MG/DL (70-110)
[2021-05-05] MEDS: LOPERAMIDE HCL 2 MG CAPSULE PO PRN (11:18)
[2021-05-05 17:08] VITALS: BP 145/91
[2021-05-05 17:36] LABS: GLUCOMETER DEV NAME(LOC) 3E.I 2; GLUCOSE,POINT OF CARE 138 MG/DL (70-110)
[2021-05-05 20:19] LABS: GLUCOMETER DEV NAME(LOC) 3E.I 2; GLUCOSE,POINT OF CARE 121 MG/DL (70-110)
[2021-05-05] MEDS ORDERED: ARIPiprazole 10 MG TABLET PO SCH (21:00)
[2021-05-06 05:24] LABS: GLUCOMETER DEV NAME(LOC) 3E.I 2; GLUCOSE,POINT OF CARE 115 MG/DL (70-110)
[2021-05-06] MEDS: MetFORMIN HCL 500 MG TABLET PO SCH (07:01)
[2021-05-06] MEDS: INSULIN LISPRO 100 UNITS/ML SQ PRN (07:03)
[2021-05-06 08:00] VITALS: BP 114/66
[2021-05-06] MEDS: GABAPENTIN 300 MG CAPSULE PO SCH (08:11)
[2021-05-06] MEDS: FLUTICASONE PROPIONATE 50 MCG/SPRAY 16 GM NASAL SPRAY NASAL SCH (08:11)
[2021-05-06] MEDS: ASCORBIC ACID 500 MG TABLET PO SCH (08:11)
[2021-05-06] MEDS: PANTOPRAZOLE SODIUM 40 MG DR TABLET PO SCH (08:11)
[2021-05-06] MEDS: LOSARTAN POTASSIUM 25 MG TABLET PO SCH (08:11)
[2021-05-06 11:58] LABS: GLUCOMETER DEV NAME(LOC) 3E.I 2; GLUCOSE,POINT OF CARE 102 MG/DL (70-110)
[2021-05-06 12:12] VITALS: BP 118/64
[2021-05-06] MEDS: LOPERAMIDE HCL 2 MG CAPSULE PO PRN (12:25)
[2021-05-06] MEDS ORDERED: METF-960 PO (12:31)
[2021-05-06] MEDS ORDERED: LOSA25TA21 PO (12:32)
== END 2021-05-06 14:00 | disposition home or self-care (01) | DRG 750 ==
LOC: EMS 15:55 → 3EI 19:55
PROVIDERS: ADMIT Psychiatry & Neurology Child & Adolescent Psychiatry; ATTEND Psychiatry & Neurology Child & Adolescent Psychiatry
DX: F25.1 Schizoaffective disorder, depressive type (principal); R45.851 Suicidal ideations; E11.9 Type 2 diabetes mellitus without complications; F64.0 Transsexualism; G47.33 Obstructive sleep apnea (adult) (pediatric); Z20.822 Contact with and (suspected) exposure to COVID-19; I10 Essential (primary) hypertension; K21.9 Gastro-esophageal reflux disease without esophagitis; Z79.899 Other long term (current) drug therapy; Z91.14 Patient's other noncompliance with medication regimen
CPT/HCPCS: 80053; 80061; 82962; 85025; 94660; 99285; G0480; J3535